=== PATIENT | male | born 1955 | race Caucasian/White ===

== ENCOUNTER → 2023-07-28 08:08 | Outpatient (REF) | payer MEDICARE, BC, SELFPAY ==
[2023-07-28 08:41] LABS: Hematocrit 37.9 % (39.0-52.0); Hemoglobin 13.1 g/dL (13.0-18.0)
[2023-07-28 09:07] LABS: Urine Protein < 5 mg/dl
[2023-07-28 09:11] LABS: Albumin 4.1 g/dl (3.5-5.0); Blood Urea Nitrogen 65 mg/dl (9-20); Calcium 9.7 mg/dl (8.4-10.2); Carbon Dioxide 28 mmol/L (22-30); Chloride 102 mmol/L (98-107); Glucose 112 mg/dl (70-99); Phosphorus 4.2 mg/dl (2.5-4.5); Potassium 4.1 mmol/L (3.5-5.1); Sodium 139 mmol/L (135-145); eGFR 34.08
[2023-07-28 09:36] LABS: Cortisol, Random 13.2 ug/dl; TSH Reflex To Free T4 3.07 uIU/ml (0.47-4.68)
[2023-07-29 11:47] LABS: Intact PTH 43.8 pg/ml (13.6-85.8)
[2023-07-30 20:16] LABS: Aldosterone, Serum 28.1 ng/dL; Aldosterone/Renin Activ Ratio 2.1 ratio (<=25.0); Renin Activity Results 13.6 ng/mL/hr
== END ==
LOC: REG 08:08
PROVIDERS: ATTENDING PHYSICIAN Specialist; FAMILY PHYSICIAN Internal Medicine
DX: I10 Essential (primary) hypertension (principal); N18.32 Chronic kidney disease, stage 3b
CPT/HCPCS: 36415; 80069; 82088; 82306; 82533; 82570; 83835; 83970; 84156; 84244; 84443; 85014; 85018

== ENCOUNTER → 2023-09-01 08:47 | Outpatient (REF) | payer MEDICARE, BC, SELFPAY ==
[2023-09-01 10:11] LABS: Blood Urea Nitrogen 28 mg/dl (9-20); Calcium 9.1 mg/dl (8.4-10.2); Carbon Dioxide 25 mmol/L (22-30); Chloride 108 mmol/L (98-107); Glucose 92 mg/dl (70-99); HDL Cholesterol 37 mg/dl; LDL Cholesterol, Calculated 91 mg/dl; Potassium 4.2 mmol/L (3.5-5.1); Sodium 139 mmol/L (135-145); Total Cholesterol 141 mg/dl (50-199); Triglyceride 66 mg/dl (10-149); Very Low Density Lipoprotein 13 mg/dl (0-30); eGFR 51.03
== END ==
LOC: REG 08:47
PROVIDERS: ATTENDING PHYSICIAN Specialist
DX: R79.89 Other specified abnormal findings of blood chemistry (principal); I10 Essential (primary) hypertension; E78.5 Hyperlipidemia, unspecified
CPT/HCPCS: 36415; 80048; 80061

== ENCOUNTER → 2023-09-22 08:47 | Outpatient (REF) | payer MEDICARE, BC, SELFPAY ==
[2023-09-22 09:56] LABS: % Basophils 1.2 % (0-2); % Eosinophils 2.5 % (0-6); % Immature Granulocytes 0.4 % (0-0.5); % Lymphocytes 22.2 % (20.5-51.1); % Monocytes 8.6 % (1.7-9.3); % Neutrophils 65.1 % (42.2-75.2); Absolute Basophils 0.1 10^3/uL (0-0.2); Absolute Eosinophils 0.1 10^3/uL (0-0.7); Absolute Lymphocytes 1.1 10^3/uL (1.2-3.4); Absolute Monocytes 0.4 10^3/uL (0.1-0.6); Absolute Neutrophils 3.3 10^3/uL (1.4-6.5); Hematocrit 36.1 % (39.0-52.0); Hemoglobin 12.1 g/dL (13.0-18.0); Mean Corp Hgb Conc. 33.5 g/dL (33.0-37.0); Mean Corpuscular Hgb 30.3 pg (27.0-31.0); Mean Corpuscular Volume 90.3 fL (80.0-94.0); Mean Platelet Volume 9.8 fL (7.4-10.4); Nucleated Red Blood Cells % 0 % (-); Platelet Count 191 10^3/uL (130-400); Red Cell Dist. Width 13.8 % (11.5-14.5); White Blood Cell Count 5.1 10^3/uL (4.8-10.8)
[2023-09-22 10:14] LABS: Erythrocyte Sed Rate 11 mm/hour (0-20)
[2023-09-22 10:34] LABS: C-Reactive Protein < 5.00 mg/L (0.0-10.00)
[2023-09-22 10:35] LABS: ALT (SGPT) 26 U/L (0-50); AST (SGOT) 31 U/L (17-59); Albumin 4.1 g/dl (3.5-5.0); Alkaline Phosphatase 56 U/L (38-126); Blood Urea Nitrogen 26 mg/dl (9-20); Calcium 9.4 mg/dl (8.4-10.2); Carbon Dioxide 27 mmol/L (22-30); Chloride 109 mmol/L (98-107); Glucose 93 mg/dl (70-99); Potassium 4.4 mmol/L (3.5-5.1); Sodium 140 mmol/L (135-145); Total Bilirubin 0.6 mg/dl (0.2-1.3); Total Protein 6.5 g/dl (6.3-8.2); Uric Acid 4.4 mg/dl (3.5-8.5); eGFR 55.43
[2023-09-22 11:07] LABS: Hepatitis B Surface Antigen Negative (Negative)
[2023-09-22 11:25] LABS: Hepatitis B Core Ab, Total Negative (Negative); Hepatitis C Antibody Negative (Negative)
[2023-09-24 11:20] LABS: Quantiferon Mitogen minus NIL 8.74 IU/mL; Quantiferon NIL 0.02 IU/mL; Quantiferon TB Gold Plus Negative (Negative)
== END ==
LOC: REG 08:47
PROVIDERS: ATTENDING PHYSICIAN Internal Medicine; FAMILY PHYSICIAN Internal Medicine
DX: E07.9 Disorder of thyroid, unspecified (principal); E55.9 Vitamin D deficiency, unspecified; E79.0 Hyperuricemia without signs of inflammatory arthritis and tophaceous disease; E83.118 Other hemochromatosis; K75.9 Inflammatory liver disease, unspecified; L40.50 Arthropathic psoriasis, unspecified; M06.00 Rheumatoid arthritis without rheumatoid factor, unspecified site; M06.9 Rheumatoid arthritis, unspecified; M10.072 Idiopathic gout, left ankle and foot; M19.071 Primary osteoarthritis, right ankle and foot; M1A.09X0 Idiopathic chronic gout, multiple sites, without tophus (tophi); M25.50 Pain in unspecified joint; M25.541 Pain in joints of right hand; M47.819 Spondylosis without myelopathy or radiculopathy, site unspecified; M79.671 Pain in right foot; N28.9 Disorder of kidney and ureter, unspecified; Z22.7 Latent tuberculosis; Z51.81 Encounter for therapeutic drug level monitoring
CPT/HCPCS: 36415; 80053; 84550; 85025; 85652; 86140; 86480; 86704; 86803; 87340

== ENCOUNTER → 2023-11-24 07:03 | Outpatient (REF) | payer MEDICARE, BC, SELFPAY ==
[2023-11-24 09:36] LABS: Blood Urea Nitrogen 33 mg/dl (9-20); Calcium 9.7 mg/dl (8.4-10.2); Carbon Dioxide 23 mmol/L (22-30); Chloride 107 mmol/L (98-107); Glucose 91 mg/dl (70-99); Potassium 4.1 mmol/L (3.5-5.1); Sodium 140 mmol/L (135-145); eGFR 51.03
== END ==
LOC: REG 07:03
PROVIDERS: ATTENDING PHYSICIAN Specialist; FAMILY PHYSICIAN Internal Medicine
DX: R79.89 Other specified abnormal findings of blood chemistry (principal)
CPT/HCPCS: 36415; 80048

== ENCOUNTER → 2024-03-25 06:51 | Outpatient (REF) | payer MEDICARE, BC, SELFPAY ==
[2024-03-25 08:11] LABS: % Basophils 1.1 % (0-2); % Eosinophils 3.7 % (0-6); % Immature Granulocytes 0.3 % (0-0.5); % Lymphocytes 21.6 % (20.5-51.1); % Monocytes 8.4 % (1.7-9.3); % Neutrophils 64.9 % (42.2-75.2); Absolute Basophils 0.1 10^3/uL (0-0.2); Absolute Eosinophils 0.2 10^3/uL (0-0.7); Absolute Lymphocytes 1.3 10^3/uL (1.2-3.4); Absolute Monocytes 0.5 10^3/uL (0.1-0.6); Hematocrit 39.7 % (39.0-52.0); Hemoglobin 13.5 g/dL (13.0-18.0); Mean Corpuscular Hgb 29.5 pg (27.0-31.0); Mean Corpuscular Volume 86.9 fL (80.0-94.0); Mean Platelet Volume 9.2 fL (7.4-10.4); Nucleated Red Blood Cells % 0 % (-); Platelet Count 215 10^3/uL (130-400); Red Blood Cell Count 4.57 10^6/uL (4.70-6.10); Red Cell Dist. Width 13.2 % (11.5-14.5); White Blood Cell Count 6.2 10^3/uL (4.8-10.8)
[2024-03-25 08:58] LABS: ALT (SGPT) 31 U/L (0-50); AST (SGOT) 31 U/L (17-59); Albumin 3.7 g/dl (3.5-5.0); Alkaline Phosphatase 55 U/L (38-126); Blood Urea Nitrogen 37 mg/dl (9-20); Calcium 9.2 mg/dl (8.4-10.2); Carbon Dioxide 26 mmol/L (22-30); Chloride 106 mmol/L (98-107); Glucose 104 mg/dl (70-99); Potassium 4.5 mmol/L (3.5-5.1); Sodium 141 mmol/L (135-145); Total Bilirubin 0.4 mg/dl (0.2-1.3); Total Protein 6.1 g/dl (6.3-8.2); Uric Acid 5.9 mg/dl (3.5-8.5); eGFR 46.93
[2024-03-25 10:46] LABS: Erythrocyte Sed Rate 14 mm/hour (0-20)
== END ==
LOC: REG 06:51
PROVIDERS: ATTENDING PHYSICIAN Internal Medicine Rheumatology; FAMILY PHYSICIAN Internal Medicine
DX: L40.50 Arthropathic psoriasis, unspecified (principal); M1A.09X0 Idiopathic chronic gout, multiple sites, without tophus (tophi); N28.9 Disorder of kidney and ureter, unspecified; Z51.81 Encounter for therapeutic drug level monitoring
CPT/HCPCS: 36415; 80053; 84550; 85025; 85652; 86140

== ENCOUNTER → 2024-08-13 06:50 | Outpatient (REF) | payer OTHER, SELFPAY ==
[2024-08-13 09:16] LABS: HDL Cholesterol 35 mg/dl; LDL Cholesterol, Calculated 186 mg/dl; Total Cholesterol 248 mg/dl (50-199); Triglyceride 139 mg/dl (10-149); Very Low Density Lipoprotein 27 mg/dl (0-30)
[2024-08-13 10:03] LABS: PSA, Total - Screen 0.79 ng/ml (0.0-4.0); TSH 3.51 uIU/ml (0.47-4.68)
== END ==
LOC: REG 06:50
PROVIDERS: ATTENDING PHYSICIAN Internal Medicine
DX: Z00.00 Encounter for general adult medical examination without abnormal findings (principal); E78.5 Hyperlipidemia, unspecified
CPT/HCPCS: 36415; 80061; 84443; G0103

== ENCOUNTER → 2024-09-04 06:43 | Outpatient (REF) | payer OTHER, SELFPAY ==
[2024-09-04 07:51] LABS: ALT (SGPT) 27 U/L (0-50); AST (SGOT) 33 U/L (17-59); Albumin 3.7 g/dl (3.5-5.0); Alkaline Phosphatase 58 U/L (38-126); Blood Urea Nitrogen 44 mg/dl (9-20); Calcium 9.4 mg/dl (8.4-10.2); Carbon Dioxide 26 mmol/L (22-30); Chloride 108 mmol/L (98-107); Glucose 104 mg/dl (70-99); Potassium 4.6 mmol/L (3.5-5.1); Sodium 141 mmol/L (135-145); Total Bilirubin 0.4 mg/dl (0.2-1.3); Total Protein 6.2 g/dl (6.3-8.2); eGFR 43.64
[2024-09-04 07:56] LABS: Urine Albumin 3+ (Neg - Trace); Urine Bilirubin Negative (Negative); Urine Character Clear (Clear); Urine Color Yellow; Urine Glucose Negative (Negative); Urine Ketone Negative (Negative); Urine Leukocyte Negative (Negative); Urine Nitrite Negative (Negative); Urine Occult Blood Negative (Negative); Urine Urobilinogen Negative (Neg - 1+)
[2024-09-04 07:58] LABS: Intact PTH 89.6 pg/ml (13.6-85.8)
[2024-09-04 09:07] LABS: Protein/creatinine Ratio 3.6; Urine Protein 328 mg/dl
[2024-09-04 09:35] LABS: Urine Amorphous Seen; Urine Granular Cast 0-2 /LPF (0); Urine Hyaline Cast 0-2 /LPF (0-2)
[2024-09-04 09:36] LABS: Urine Red Blood Cell 0-2 /HPF (0-2); Urine Urothelial Cell 0-2 /LPF (FEW); Urine White Cell 0-2 /HPF (0-5)
== END ==
LOC: REG 06:43
PROVIDERS: ATTENDING PHYSICIAN Specialist; FAMILY PHYSICIAN Internal Medicine
DX: I10 Essential (primary) hypertension (principal); R80.9 Proteinuria, unspecified; R79.89 Other specified abnormal findings of blood chemistry; N28.9 Disorder of kidney and ureter, unspecified
CPT/HCPCS: 36415; 80053; 81003; 81015; 82570; 83970; 84100; 84156

== ENCOUNTER → 2024-09-06 07:34 | Outpatient (REF) | payer OTHER, MEDICARE, SELFPAY ==
[2024-09-06 08:27] LABS: Urine Albumin 3+ (Neg - Trace); Urine Bilirubin Negative (Negative); Urine Character Clear (Clear); Urine Color Yellow; Urine Glucose Negative (Negative); Urine Ketone Negative (Negative); Urine Leukocyte Negative (Negative); Urine Nitrite Negative (Negative); Urine Occult Blood Negative (Negative); Urine Specific Gravity 1.015 (<1.030); Urine Urobilinogen Negative (Neg - 1+)
[2024-09-06 08:40] LABS: Urine Squamous Cell 0-2 /LPF (Few)
[2024-09-06 08:41] LABS: Urine Bacteria Few (Negative); Urine Red Blood Cell 0-2 /HPF (0-2); Urine White Cell 0-2 /HPF (0-5)
[2024-09-06 09:02] LABS: HDL Cholesterol 36 mg/dl; LDL Cholesterol, Calculated 164 mg/dl; Total Cholesterol 218 mg/dl (50-199); Triglyceride 92 mg/dl (10-149); Very Low Density Lipoprotein 18 mg/dl (0-30)
[2024-09-06 09:19] LABS: Protein/creatinine Ratio 3.9; Urine Protein 176 mg/dl
[2024-09-08 20:18] LABS: 24 Hour Urine Total Volume Random mL; Urine Collection Length Random hr; Urine Free Kappa Light Chains 35.87 mg/L (0.00-32.90); Urine Free Lambda Light Chains 5.51 mg/L (0.00-3.79)
== END ==
LOC: REG 07:34
PROVIDERS: ATTENDING PHYSICIAN Specialist
DX: I10 Essential (primary) hypertension (principal); N18.32 Chronic kidney disease, stage 3b; R80.9 Proteinuria, unspecified; E78.2 Mixed hyperlipidemia
CPT/HCPCS: 36415; 80061; 81003; 81015; 82570; 83521; 84155; 84156; 84165; 86335

== ENCOUNTER → 2024-09-23 09:00 | Outpatient (REF) | payer OTHER, SELFPAY ==
[2024-09-23 07:31] LABS: % Basophils 0.8 % (0-2); % Immature Granulocytes 0.2 % (0-0.5); % Lymphocytes 23.2 % (20.5-51.1); % Neutrophils 64.8 % (42.2-75.2); Absolute Basophils 0.1 10^3/uL (0-0.2); Absolute Eosinophils 0.2 10^3/uL (0-0.7); Absolute Lymphocytes 1.4 10^3/uL (1.2-3.4); Absolute Monocytes 0.5 10^3/uL (0.1-0.6); Absolute Neutrophils 3.8 10^3/uL (1.4-6.5); Hemoglobin 14.2 g/dL (13.0-18.0); Mean Corp Hgb Conc. 34.6 g/dL (33.0-37.0); Mean Corpuscular Hgb 30.8 pg (27.0-31.0); Mean Corpuscular Volume 88.9 fL (80.0-94.0); Nucleated Red Blood Cells % 0 % (-); Platelet Count 221 10^3/uL (130-400); Red Blood Cell Count 4.61 10^6/uL (4.70-6.10); Red Cell Dist. Width 12.9 % (11.5-14.5); White Blood Cell Count 5.9 10^3/uL (4.8-10.8)
[2024-09-23 08:11] LABS: ALT (SGPT) 26 U/L (0-50); AST (SGOT) 28 U/L (17-59); Albumin 3.7 g/dl (3.5-5.0); Alkaline Phosphatase 53 U/L (38-126); Blood Urea Nitrogen 35 mg/dl (9-20); Calcium 9.5 mg/dl (8.4-10.2); Carbon Dioxide 26 mmol/L (22-30); Chloride 106 mmol/L (98-107); Glucose 103 mg/dl (70-99); Potassium 4.6 mmol/L (3.5-5.1); Sodium 140 mmol/L (135-145); Total Bilirubin 0.6 mg/dl (0.2-1.3); Uric Acid 5.2 mg/dl (3.5-8.5); eGFR 50.71
[2024-09-23 08:59] LABS: Erythrocyte Sed Rate 6 mm/hour (0-20)
== END ==
LOC: REG 09:00
PROVIDERS: ATTENDING PHYSICIAN Internal Medicine Rheumatology; FAMILY PHYSICIAN Internal Medicine
DX: M1A.09X0 Idiopathic chronic gout, multiple sites, without tophus (tophi) (principal); Z51.81 Encounter for therapeutic drug level monitoring; L40.50 Arthropathic psoriasis, unspecified; N28.9 Disorder of kidney and ureter, unspecified
CPT/HCPCS: 36415; 80053; 84550; 85025; 85652; 86140

== ENCOUNTER → 2024-09-24 08:53 | Outpatient (REF) | payer OTHER, SELFPAY | LOC: RAD 08:53 | PROVIDERS: ATTENDING PHYSICIAN Specialist; FAMILY PHYSICIAN Internal Medicine | DX: R80.9 Proteinuria, unspecified (principal) | CPT/HCPCS: 76770 ==

== ENCOUNTER → 2024-10-15 06:19 | Outpatient (REF) | payer OTHER, SELFPAY ==
[2024-10-17 00:03] LABS: Complement C3 112 mg/dl (88-165); IgA 128 mg/dl (70-400); IgG 778 mg/dl (700-1600); IgM 41 mg/dl (40-230)
[2024-10-17 06:42] LABS: ANA, IgG Reflex to HEp-2 None Detected (None Detected)
[2024-10-17 07:21] LABS: Myeloperoxidase Antibody 0 AU/mL (0-19); Serine Protease-3, IgG 1 AU/mL (0-19)
[2024-10-17 16:39] LABS: Phospholipase A2 Receptor, IgG <1:10 (<1:10)
== END ==
LOC: REG 06:19
PROVIDERS: ATTENDING PHYSICIAN Specialist; FAMILY PHYSICIAN Internal Medicine
DX: R80.9 Proteinuria, unspecified (principal)
CPT/HCPCS: 36415; 82565; 82784; 83516; 84155; 84165; 86038; 86160; 86255

== ENCOUNTER → 2024-10-16 09:33 | Outpatient (REF) | payer OTHER, SELFPAY ==
[2024-10-16 11:03] LABS: Urine Protein 168 mg/dl (0-12)
[2024-10-16 11:14] LABS: 24 Hour Urine Total Volume 3100 ml; Creat Clear Result 47.6 ml/min (61-166); Height Cm 182.88 CM; Serum Creatinine 1.8 mg/dl (0.7-1.5); Surface Area 2.197; Weight Kg 97.5 KG.
== END ==
LOC: REG 09:33
PROVIDERS: ATTENDING PHYSICIAN Specialist; FAMILY PHYSICIAN Internal Medicine
DX: R80.9 Proteinuria, unspecified (principal)
CPT/HCPCS: 81050; 82575; 84156

== ENCOUNTER 2024-11-14 07:58 | Outpatient (REF) | payer OTHER, SELFPAY ==
[2024-11-14] VITALS (11 sets, daily range): BP systolic 44–154; BP diastolic 65–75; BMI 28.8
[2024-11-14 08:23] LABS: % Basophils 0.7 % (0-2); % Eosinophils 2.1 % (0-6); % Immature Granulocytes 0.4 % (0-0.5); % Monocytes 8.7 % (1.7-9.3); % Neutrophils 67.1 % (42.2-75.2); Absolute Basophils 0.1 10^3/uL (0-0.2); Absolute Eosinophils 0.2 10^3/uL (0-0.7); Absolute Lymphocytes 1.5 10^3/uL (1.2-3.4); Absolute Monocytes 0.6 10^3/uL (0.1-0.6); Absolute Neutrophils 4.9 10^3/uL (1.4-6.5); Hematocrit 36.9 % (39.0-52.0); Hemoglobin 12.9 g/dL (13.0-18.0); Mean Corpuscular Volume 88.7 fL (80.0-94.0); Nucleated Red Blood Cells % 0 % (-); Platelet Count 231 10^3/uL (130-400); Red Blood Cell Count 4.16 10^6/uL (4.70-6.10); Red Cell Dist. Width 12.8 % (11.5-14.5); White Blood Cell Count 7.3 10^3/uL (4.8-10.8)
[2024-11-14 08:36] LABS: Blood Urea Nitrogen 43 mg/dl (9-20); Calcium 9.2 mg/dl (8.4-10.2); Carbon Dioxide 23 mmol/L (22-30); Chloride 113 mmol/L (98-107); Glucose 105 mg/dl (70-99); Potassium 4.5 mmol/L (3.5-5.1); Sodium 142 mmol/L (135-145); eGFR 43.64
[2024-11-14 08:38] LABS: INR 1.01; PT 13.8 Sec (11.4-14.6)
[2024-11-14 14:56] LABS: Hematocrit 35.4 % (39.0-52.0); Hemoglobin 12.4 g/dL (13.0-18.0)
== END 2024-11-14 15:25 | disposition home or self-care (01) ==
LOC: RADI 07:58
PROVIDERS: Radiology Vascular & Interventional Radiology; ATTENDING PHYSICIAN Specialist; FAMILY PHYSICIAN Internal Medicine
DX: I12.9 Hypertensive chronic kidney disease with stage 1 through stage 4 chronic kidney disease, or unspecified chronic kidney disease (principal); N18.4 Chronic kidney disease, stage 4 (severe)
CPT/HCPCS: 36415; 50200; 76942; 80048; 85014; 85018; 85025; 85610; 88305; 99152; 99153

== ENCOUNTER → 2024-12-18 06:19 | Outpatient (REF) | payer OTHER, SELFPAY ==
[2024-12-18 07:50] LABS: ALT (SGPT) 25 U/L (0-50); AST (SGOT) 30 U/L (17-59); Albumin 4.3 g/dl (3.5-5.0); Alkaline Phosphatase 61 U/L (38-126); Blood Urea Nitrogen 54 mg/dl (9-20); Calcium 9.4 mg/dl (8.4-10.2); Carbon Dioxide 26 mmol/L (22-30); Chloride 104 mmol/L (98-107); Glucose 95 mg/dl (70-99); Potassium 4.4 mmol/L (3.5-5.1); Sodium 138 mmol/L (135-145); Total Protein 6.9 g/dl (6.3-8.2); eGFR 35.91
[2024-12-18 08:12] LABS: Microalb - Urine Creatinine 96.000 mg/dl
[2024-12-18 10:36] LABS: Microalbumin, Random Urine > 57.0 mg/dl (0.6-1.7)
== END ==
LOC: REG 06:19
PROVIDERS: ATTENDING PHYSICIAN Specialist; FAMILY PHYSICIAN Internal Medicine
DX: R80.9 Proteinuria, unspecified (principal)
CPT/HCPCS: 36415; 80053; 82043; 82570; 84156

== ENCOUNTER → 2025-01-10 06:37 | Outpatient (REF) | payer OTHER, SELFPAY ==
[2025-01-10 07:20] LABS: Blood Urea Nitrogen 31 mg/dl (9-20); Calcium 8.7 mg/dl (8.4-10.2); Carbon Dioxide 24 mmol/L (22-30); Chloride 110 mmol/L (98-107); Glucose 95 mg/dl (70-99); Potassium 4.5 mmol/L (3.5-5.1); Sodium 141 mmol/L (135-145); eGFR 43.64
== END ==
LOC: REG 06:37
PROVIDERS: ATTENDING PHYSICIAN Specialist; FAMILY PHYSICIAN Internal Medicine
DX: N18.30 Chronic kidney disease, stage 3 unspecified (principal)
CPT/HCPCS: 36415; 80048

== ENCOUNTER → 2025-02-28 07:07 | Outpatient (REF) | payer OTHER, SELFPAY ==
[2025-02-28 08:56] LABS: Blood Urea Nitrogen 45 mg/dl (9-20); Calcium 9.1 mg/dl (8.4-10.2); Carbon Dioxide 25 mmol/L (22-30); Chloride 110 mmol/L (98-107); Glucose 107 mg/dl (70-99); Potassium 4.7 mmol/L (3.5-5.1); Sodium 142 mmol/L (135-145); eGFR 40.49
== END ==
LOC: REG 07:07
PROVIDERS: ATTENDING PHYSICIAN Specialist; FAMILY PHYSICIAN Internal Medicine
DX: N18.32 Chronic kidney disease, stage 3b (principal); I10 Essential (primary) hypertension
CPT/HCPCS: 36415; 80048